=== PATIENT | female | born 1995 | race Caucasian/White ===

== ENCOUNTER 2018-12-02 07:45 | Inpatient (IN) | payer MEDICAID ==
[2018-12-02] MEDS: LACTATED RINGER'S 1,000 ML IV ×2 (08:29→16:10)
[2018-12-02] MEDS ORDERED: CARBOPROST 250 MCG INJ IM ×2 (08:30→12:30)
[2018-12-02] MEDS ORDERED: MISOPROSTOL 200 MCG TAB PR ×2 (08:30→12:30)
[2018-12-02] MEDS ORDERED: METHYLERGONOVINE 0.2 MG INJ IM ×2 (08:30→12:30)
[2018-12-02] MEDS ORDERED: OXYTOCIN 30 UNITS/LR 500 ML IV ×2 (08:30→12:30)
[2018-12-02] MEDS ORDERED: BUTORPHANOL 2 MG INJ IV ×2 (08:30)
[2018-12-02 08:39] LABS: ADD MAN DIFF? NO
[2018-12-02 08:48] LABS: WHITE BLOOD COUNT 16.5 10^3/ul (4.8-10.8)
[2018-12-02 08:48] LABS: BASOPHIL # 0.1 10^3/ul (0.0-0.1); BASOPHILS % 0.3 % (0.0-2.0); EOSINOPHILS # 0.1 10^3/ul (0.0-0.5); EOSINOPHILS % 0.4 % (0.0-7.0); HEMATOCRIT 29.6 % (37.0-47.0); HEMOGLOBIN 9.2 g/dl (12.0-16.0); LYMPHOCYTES # 1.9 10^3/ul (0.8-2.9); LYMPHOCYTES % 11.2 % (15.0-51.0); MEAN CORPUSCULAR HEMOGLOBIN 23.8 pg (29.0-33.0); MEAN CORPUSCULAR HGB CONC 31.1 g/dl (32.0-37.0); MEAN CORPUSCULAR VOLUME 76.5 fl (82.0-101.0); MEAN PLATELET VOLUME 7.8 fl (7.4-10.4); MONOCYTE # 0.9 10^3/ul (0.3-0.9); MONOCYTES % 5.5 % (0.0-11.0); NEUTROPHIL # 13.5 10^3/ul (1.6-7.5); NEUTROPHILS % 81.9 % (39.0-77.0); PLATELET COUNT 345 10^3/UL (140-415); RED BLOOD COUNT 3.87 10^6/ul (4.20-5.40); RED CELL DISTRIBUTION WIDTH 17.5 % (11.5-14.5)
[2018-12-02] MEDS: AMPICILLIN 2 GM/NS (PMX) 100 ML IV (08:55)
[2018-12-02 09:09] LABS: PROTIME 12.3 Sec (11.9-14.9)
[2018-12-02 09:10] LABS: PARTIAL THROMBOPLASTIN TIME 30.7 Sec (23.0-35.0)
[2018-12-02 09:42] LABS: HEPATITIS B SURFACE ANTIGEN NEGATIVE (NEGATIVE)
[2018-12-02] MEDS: OXYTOCIN 30 UNITS/LR 500 ML IV ×4 (11:27→17:57)
[2018-12-02] MEDS: LIDOCAINE 1% (MPF) 30 ML INJ INJ (11:58)
[2018-12-02] MEDS ORDERED: DIPHENHYDRAMINE 25 MG CAP PO (12:30)
[2018-12-02] MEDS ORDERED: ONDANSETRON 4 MG INJ IV (12:30)
[2018-12-02] MEDS ORDERED: HYDROCODONE/APAP (5/325) TAB PO ×2 (12:30)
[2018-12-02] MEDS: AMPICILLIN 1 GM/NS (PMX) 50 ML IV ×3 (12:30→20:30)
[2018-12-02] MEDS ORDERED: METHYLERGONOVINE 0.2 MG TAB PO (12:30)
[2018-12-02] MEDS ORDERED: MAGNESIUM HYDROXIDE 30ML CUP PO (12:30)
[2018-12-02] MEDS ORDERED: NA PHOSPHATE/BIPHOS 133 ML ENEMA PR (12:30)
[2018-12-02] MEDS ORDERED: ZOLPIDEM 5 MG TAB PO (12:30)
[2018-12-02 14:06] LABS: BENZODIAZEPINES Negative (NEGATIVE)
[2018-12-02 15:01] LABS: AMPHETAMINE/METHAMPHETAMINE NEGATIVE (NEGATIVE); BARBITURATES NEGATIVE (NEGATIVE); CANNABINOIDS NEGATIVE (NEGATIVE); COCAINE NEGATIVE (NEGATIVE); OPIATES NEGATIVE (NEGATIVE)
[2018-12-02] MEDS: LACTATED RINGER'S 1,000 ML IV* ×2 (17:37→20:12)
[2018-12-02] MEDS: BENZOCAINE 20% 56 ML SPRAY TOP (17:53)
[2018-12-02] MEDS: LANOLIN HPA 1 PKT TOP (17:53)
[2018-12-02] MEDS: WITCH HAZEL/GLYCERIN PAD PR (17:53)
[2018-12-02] MEDS: IBUPROFEN 800 MG TAB PO (17:54)
[2018-12-02 18:16] LABS: RAPID PLASMA REAGIN NONREACTIVE (NR)
[2018-12-02] MEDS: SENNA/DOCUSATE NA (8.6MG/50MG) TAB PO (21:00)
[2018-12-03] MEDS: LACTATED RINGER'S 1,000 ML IV (00:10)
[2018-12-03] MEDS: AMPICILLIN 1 GM/NS (PMX) 50 ML IV ×2 (00:28→04:06)
[2018-12-03] MEDS: LACTATED RINGER'S 1,000 ML IV* (04:06)
[2018-12-03] MEDS: IBUPROFEN 800 MG TAB PO (06:20)
[2018-12-03 08:17] LABS: ADD MAN DIFF? NO
[2018-12-03 08:23] LABS: WHITE BLOOD COUNT 14.5 10^3/ul (4.8-10.8)
[2018-12-03 08:23] LABS: BASOPHILS % 0.2 % (0.0-2.0); EOSINOPHILS # 0.1 10^3/ul (0.0-0.5); EOSINOPHILS % 0.6 % (0.0-7.0); HEMATOCRIT 27.3 % (37.0-47.0); HEMOGLOBIN 8.3 g/dl (12.0-16.0); LYMPHOCYTES # 2.8 10^3/ul (0.8-2.9); LYMPHOCYTES % 19.5 % (15.0-51.0); MEAN CORPUSCULAR HEMOGLOBIN 23.6 pg (29.0-33.0); MEAN CORPUSCULAR HGB CONC 30.4 g/dl (32.0-37.0); MEAN CORPUSCULAR VOLUME 77.6 fl (82.0-101.0); MEAN PLATELET VOLUME 8.5 fl (7.4-10.4); MONOCYTES % 6.7 % (0.0-11.0); NEUTROPHIL # 10.5 10^3/ul (1.6-7.5); NEUTROPHILS % 72.4 % (39.0-77.0); PLATELET COUNT 328 10^3/UL (140-415); RED BLOOD COUNT 3.52 10^6/ul (4.20-5.40); RED CELL DISTRIBUTION WIDTH 17.8 % (11.5-14.5)
[2018-12-03] MEDS: SENNA/DOCUSATE NA (8.6MG/50MG) TAB PO ×2 (09:29→20:43)
[2018-12-03] MEDS: LANOLIN HPA 1 PKT TOP (21:38)
[2018-12-04] MEDS: VARICELLA VACCINE LIVE/PF 1,350 UNIT/0.5 ML ML SC* (09:00)
[2018-12-04] MEDS: SENNA/DOCUSATE NA (8.6MG/50MG) TAB PO (09:00)
[2018-12-04] MEDS: MEASLES,MUMPS,RUBELLA VACCINE INJ SC* (09:45)
[2018-12-04] MEDS: DIPHTH/TET/ACEL PERTUSS (ADULT) 0.5 ML VIAL IM* (13:27)
== END 2018-12-04 15:35 | disposition home or self-care (01) | DRG 807 ==
LOC: OBT 07:45 → L-D 07:45 → OBT 08:10 → L-D 08:10 → PP1 12:55
PROVIDERS: Obstetrics & Gynecology
PROC: 10E0XZZ Delivery of Products of Conception, External Approach (ICD-10-PCS; principal; 2018-12-02)
PROC: 0HQ9XZZ Repair Perineum Skin, External Approach (ICD-10-PCS; 2018-12-02)
PROC: 10907ZC Drainage of Amniotic Fluid, Therapeutic from Products of Conception, Via Natural or Artificial Opening (ICD-10-PCS; 2018-12-02)
PROC: 4A1HXCZ Monitoring of Products of Conception, Cardiac Rate, External Approach (ICD-10-PCS; 2018-12-02)
DX: O77.0 Labor and delivery complicated by meconium in amniotic fluid (principal); Z37.0 Single live birth; O70.0 First degree perineal laceration during delivery; O69.81X0 Labor and delivery complicated by cord around neck, without compression, not applicable or unspecified; Z3A.37 37 weeks gestation of pregnancy; Z23 Encounter for immunization
CPT/HCPCS: 80307; 85025; 85610; 85730; 86592; 86850; 86900; 86901; 87340; 90716; 99464